=== PATIENT | female | born 1995 | race Caucasian/White ===

== ENCOUNTER 2020-07-11 23:48 | Emergency (ER) | payer SELFPAY ==
[~2020-07-11] VITALS: Ht 154.9 cm; Wt 63.5 kg
--- NOTE | 2020-07-12 00:25 | NUR ---
Dr. Herbert at bedside for MSE.
[2020-07-12] MEDS ORDERED: DIPHENOXYLATE HCL/ATROP SULF TABLET PO ONE (00:30)
[2020-07-12] MEDS ORDERED: HYDROCODONE/APAP 5-325MG TABLET PO ONE (00:30)
--- NOTE | 2020-07-12 00:36 | NUR ---
Patient eloped from facility. ER physician notified.
== END 2020-07-12 00:38 | disposition left against medical advice (07) ==
LOC: ER 23:48
DX: R51.9 Headache, unspecified (principal); F15.10 Other stimulant abuse, uncomplicated; R19.7 Diarrhea, unspecified; Z59.0 Homelessness; F31.9 Bipolar disorder, unspecified
CPT/HCPCS: A4663